=== PATIENT | female | born 1985 | race African-American/Black ===

== ENCOUNTER 2018-01-06 17:55 | Emergency (ER) | payer SELFPAY ==
[~2018-01-06] VITALS: Ht 162.6 cm; Wt 90.7 kg
[2018-01-06] MEDS ORDERED: NKM (18:05)
[2018-01-06] MEDS ORDERED: Lidocaine 1% 10mg/ml/Epi 0.005mg/ml 30ml vial INJ ONE (18:15)
[2018-01-06] MEDS ORDERED: Tetanus/Diptheria/Pertussis Vaccine 0.5ml Syr IM ONE (18:15)
[2018-01-06] MEDS ORDERED: HYDROcodone/Acetamin 7.5/325 tab ORAL ONE (18:15)
[2018-01-06 18:25] VITALS: BP 114/73
[2018-01-06] MEDS ORDERED: ceFAZolin 1gm/50ml Premix 50 ML IV ONE (18:30)
[2018-01-06] MEDS ORDERED: Bacitracin Oint UD TOPIC ONE (18:45)
[2018-01-06] MEDS ORDERED: NORCO 5-325 TA1 EACH ORAL (19:48)
[2018-01-06] MEDS ORDERED: IBUPROFEN600 MG ORAL (19:48)
[2018-01-06] MEDS ORDERED: CEPHALEXIN500 MG ORAL (19:48)
[2018-01-06 20:06] VITALS: BP 114/73
--- NOTE | 2018-01-06 20:28 | Emergency Room Report ---
History of Present Illness General Chief Complaint: Laceration Source: Patient (HUGH BARNHART) Present Illness HPI The patient is a 32-year-old female presenting for right wrist injury approximately earlier today. She states that she was hitting mosquitoes on her window when the window broke and a piece of glass cut her wrist. Pain is now a 6 out of 10 dull ache and does not radiate. Worse with touch. She denies any heavy bleeding. She denies any other injury. She denies any other symptoms. She denies intent of self-harm Last tetanus shot is unknown (HUGH BARNHART) Allergies: Coded Allergies: ERYTHROMYCIN BASE (Verified Allergy, Unknown, 01/06/18) Patient History Past Medical History: see triage record Pertinent Family History: none Now: No Reviewed Nursing Documentation: PMH: Agreed; PSxH: Agreed (HUGH BARNHART) Nursing Documentation-PMH Past Medical History: No Stated History (HUGH BARNHRAT) Review of Systems All Other Systems: negative except mentioned in HPI (HUGH BARNHART) Physical Exam Vital Signs Date Time Temp Pulse Resp B/P (MAP) Pulse Ox O2 Delivery O2 Flow Rate FiO2 01/06/18 18:00 98.7 87 17 119/76 99 Room Air 98.8 Sp02 EP Interpretation: reviewed, normal General Appearance: no apparent distress, alert, GCS 15, non-toxic Head: normocephalic, atraumatic Musculoskeletal: normal range of motion - R wrist and fingers, tender - R anterior wrist Neurologic: alert, oriented x3, responsive, motor strength/tone normal, sensory intact, speech normal Psychiatric: judgement/insight normal, memory normal, mood/affect normal, no suicidal/homicidal ideation Skin: laceration - Aprox 4cm linear laceration of the R volar surface of wrist. medial tendon is visible and aprox 70-80% lacerated (HUGH BARNHART) Procedures Laceration/Wound Repair Laceration/Wound Repair : Consent: Written - Procedure done by Dr. Ruben Ryder. Please see his note. Tendon repair and skin closure. Wound Location: upper extremity - R wrist (HUGH BARNHART) Medical Decision Making PA Attestation Dr. Arce is my supervising physician. Patient management was discussed with my supervising physician (HUGH BARNHART) Diagnostic Impression: Primary Impression: Tendon laceration ER Course The patient is a 32-year-old female presenting for right wrist injury approximately earlier today Ddx considered include but not limited to fracture, tendon/ligament injury, avulsion, nerve damage PE: NAD Aprox 4cm linear laceration of the R volar surface of wrist. medial tendon is visible and aprox 70-80% lacerated Full AROM of wrist and fingers intact. SILT. Radial pulse 2+ The wound is thoroughly cleaned with normal saline and Betadine. Lidocaine 1% with epi was used for local anesthesia. IV Ancef was started Dr. Ruben Ryder was consulted and arrived at the emergency department shortly after. He obtained the patient's consent and repaired the tendon and closed the skin laceration. Please see his note for full details. He told the patient to follow up with in his office. Office information is provided at time of discharge The patient is given prescription for Keflex and pain medication. ER precautions given (HUGH BARNHART) ER Course Patient examined by me. Palmaris longus laceration with R wrist laceration. I agree with treatment plan. (Clinton Arce M.D.) Other X-Ray Diagnostic Results Other X-Ray Diagnostic Results : X-Ray ordered: R wrist # of Views/Limited Vs Complete: 3 View Indication: Pain EP Interpretation: Yes PA Xray: Interpretation reviewed, by supervising MD, and agrees with findings. Interpretation: no dislocation, no soft tissue swelling, no fractures Impression: Other - no FB Electronically Signed by: Hugh Barnhart PA-C (HUGH BARNHART PZamzamAZamzam) Last Vital Signs Date Time Temp Pulse Resp B/P (MAP) Pulse Ox O2 Delivery O2 Flow Rate FiO2 01/06/18 20:06 98.7 75 17 114/73 99 Room Air 209.7 Status: improved (HUGH BARNHART) Disposition: HOME, SELF-CARE Condition: Improved Scripts Ibuprofen* (MOTRIN*) 600 Mg Tablet 600 MG ORAL Q8H PRN for For Pain, #30 TAB 0 Refills Prov: HUGH BARNHART 01/06/18 Hydrocodone Bit/Acetaminophen 5-325* (NORCO 5-325*) 1 Each Tablet 1 TAB ORAL Q6H PRN for For Pain, #8 TAB 0 Refills Prov: HUGH BARNHART.A. 01/06/18 Cephalexin* (KEFLEX*) 500 Mg Capsule 500 MG ORAL EVERY 6 HOURS, #28 CAP Prov: HUGH BARNHART.A. 01/06/18 Referrals: RUEBN RYDER M.D. Patient Instructions: Laceration Care, Adult, Tendon Injury Additional Instructions: Dr. Ruben Ryder has instructed you to make an appointment with him in his office. Information has been provided. No heavy lifting. Take the medications as prescribed. Return to emergency Department if you notice numbness, wound discharge, redness around the wound, increased pain, or any other symptoms HUGH BARNHART Jan 06, 2018 20:28 Clinton Arce M.D. Jan 07, 2018 23:29
--- NOTE | 2018-01-07 10:37 | Diagnostic Imaging Report ---
Indication: Right wrist pain Findings: 3 views of the right wrist were obtained. No acute fractures, malalignment, erosions or periostitis are identified. Soft tissues are unremarkable. Impression: No acute findings.
--- NOTE | 2018-02-05 22:30 | Consultation ---
DATE OF CONSULTATION: 01/16/2018 PREOPERATIVE DIAGNOSIS/REASON FOR CONSULTATION: Right wrist laceration and transection of the . HISTORY OF PRESENT ILLNESS: The patient is a 32-year-old female, who sustained a right wrist injury earlier today. She was hitting mosquitoes and hit a window trying to kill mosquito and the window broke. The glass cut her wrist. There was profuse bleeding for which she applied pressure and then came to the ER at [facility] for evaluation and treatment. PAST MEDICAL HISTORY: None. PAST SURGICAL HISTORY: None. ALLERGIES TO MEDICATIONS: None. CURRENT MEDICATIONS: None. REVIEW OF SYSTEMS: Negative except as noted in the history of present illness. PHYSICAL EXAM: VITAL SIGNS: Temperature 98.7, pulse 87, respiratory rate 17, blood pressure 119/76, and pulse ox 99 on room air. HEENT: Head is normocephalic, atraumatic. No gross deformities. No scalp lacerations. Pupils are equal, round, and reactive to light. Extraocular motion is intact and symmetrical bilaterally. External nose, eyes, ears, not all appear normal. NECK: Supple. No jugular venous distention. No palpable masses. No bruits. CHEST: Clear to auscultation. No wheezes, rales, or crackles. CARDIOVASCULAR: Normal sinus rhythm. Normal S1, S2. No murmurs, rubs, or gallops. ABDOMEN: Soft, nontender, and nondistended. No guarding, rebound, or rigidity. EXTREMITIES: Full range of motion. No gross deformities except for the right wrist. The right volar wrist has approximately 4 cm laceration transecting the palmaris longus tendon, which is completely transected. No other vessel or tendon injury visible wound. ASSESSMENT AND PLAN: The patient is a 32-year-old female with transection of the palmaris longus tendon as well as having a 4 cm laceration across the volar wrist crease. The risks, benefits, and alternatives were discussed with her regarding her condition and surgery to repair her palmaris longus and her volar wrist laceration. She understands and agrees to proceed with repair. Arrangements will be made. Theron Ryder M.D. DR: HANNAH JOB#: [id number] CC:
--- NOTE | 2018-02-06 03:00 | Operative Note - Dictated ---
DATE OF OPERATION: 01/06/2018 PREOPERATIVE DIAGNOSIS: Right volar wrist laceration with complete transection of the palmaris longus tendon. POSTOPERATIVE DIAGNOSIS: Right volar wrist laceration with complete transection of the palmaris longus tendon. PROCEDURE: Repair of 4 cm laceration of the right volar wrist with debridement and repair of palmaris longus tendon. SURGEON: Theron Ryder M.D. MANAGER STUDIO: None. ANESTHESIA: 1% lidocaine with epinephrine and local regional block. COMPLICATIONS: None. SPECIMENS: None. FINDINGS DURING THIS PROCEDURE: A 4 cm volar wrist laceration with complete transection of the palmaris longus tendon. No other visible tendon or nerve injury noted. OPERATIVE PROCEDURE NOTE IN DETAIL: The patient was prepped and draped in the usual sterile fashion. 1% lidocaine with epinephrine was used to locally anesthetize the area around the injury in a field block. The wound was copiously irrigated using normal saline. The wound was debrided, and then the flaps were raised proximally and distally to locate and expose the severed ends of palmaris longus tendon. The tendon was brought to length, and the ends of the tendon was freshened up using closed lithotomy scissors. The rest of the wound was explored, and there appears to be no other injured structures. Palmaris longus tendon was then repaired using multiple [id number] sutures using 4-0 Mersilene interrupted [id number] sutures. After repairing the palmaris longus tendon, the laceration was then repaired in there using 4-0 Vicryl interrupted deep dermal suture as well as fascial suture and then 3-0 nylon interrupted vertical mattress sutures. Antibiotic ointment and Xeroform dressing were applied over the suture line, and the patient was placed in a forearm splint. The patient tolerated the procedure well without any problems. The patient will be discharged home and will follow up with me in my office. Theron Ryder M.D. DR: HANNAH JOB#: [id number] CC:
== END 2018-01-06 20:06 | disposition home or self-care (01) ==
LOC: EMR 18:13
DX: S61.511A Laceration without foreign body of right wrist, initial encounter (principal); S66.821A Laceration of other specified muscles, fascia and tendons at wrist and hand level, right hand, initial encounter; W25.XXXA Contact with sharp glass, initial encounter; Y92.9 Unspecified place or not applicable; Z23 Encounter for immunization
CPT/HCPCS: 13121; 25260; 73110; 90471; 90715; 96365; 99284; J0690